=== PATIENT | male | born 1935 | race Caucasian/White ===

== ENCOUNTER → 2018-03-13 | Outpatient (CLI) | payer OTHER, BC | END | disposition home or self-care (01) | LOC: NUC 09:51 | DX: M41.85 Other forms of scoliosis, thoracolumbar region (principal); M19.032 Primary osteoarthritis, left wrist; M19.031 Primary osteoarthritis, right wrist; M19.042 Primary osteoarthritis, left hand; M19.041 Primary osteoarthritis, right hand; M19.071 Primary osteoarthritis, right ankle and foot; M47.895 Other spondylosis, thoracolumbar region | CPT/HCPCS: 78306; A9503 ==

== ENCOUNTER → 2018-05-16 | Outpatient (CLI) | payer OTHER, BC ==
[~2018-05-16] MED LIST: ALDACTONE25 MG PO; ALLOPURINOL100 MG PO; ASPIR 8181 M1 PO; COZAAR100 MG PO; FISH OIL 1,001000 M2 PO; LOPRESSOR25 MG PO; METAMUCIL0.4 GM PO
== END | disposition home or self-care (01) ==
LOC: OPR 07:25 → EDSTATUS 08:00
DX: C64.9 Malignant neoplasm of unspecified kidney, except renal pelvis (principal); C61 Malignant neoplasm of prostate; I10 Essential (primary) hypertension; M85.89 Other specified disorders of bone density and structure, multiple sites; Z79.82 Long term (current) use of aspirin
CPT/HCPCS: 77012; 88305; 88341 TC; 88342 TC; J3010